=== PATIENT | male | born 1935 | race Caucasian/White ===

== ENCOUNTER 2021-07-22 08:40 | Inpatient (IN) | payer MEDICARE, MEDICAID ==
[~2021-07-22] VITALS: Ht 185.4 cm; Wt 63.5 kg
[2021-07-22 09:12] LABS: HEMOGLOBIN 9.2 gm/dl (12.3-15.3); RED BLOOD COUNT 3.08 M/UL (4.00-5.10); WHITE BLOOD COUNT 23.9 K/UL (4.5-11.0)
[2021-07-22 09:26] LABS: BUN/CREATININE RATIO 40 (0-10)
[2021-07-22] MEDS ORDERED: FOLIC ACID 1 MG1 MG GT (22:42)
[2021-07-22] MEDS ORDERED: ELIQUIS 2.5 MG2.5 MG GT (22:43)
[2021-07-22] MEDS ORDERED: ACIDOPHILUS-PE1 EACH GT (22:44)
[2021-07-22] MEDS ORDERED: FERROUS SULFAT325 M2 GT (22:44)
[2021-07-22] MEDS ORDERED: MELATONIN1 MG GT (22:45)
[2021-07-22] MEDS ORDERED: MULTI-VITAMIN1 EACH GT (22:46)
[2021-07-22] MEDS ORDERED: TYLENOL325 M1 GT (22:47)
[2021-07-22] MEDS ORDERED: GERI-LANTA LIQ355 M1 GT (22:48)
[2021-07-22] MEDS ORDERED: MILK OF MAGNESI30 ML GT (22:49)
[2021-07-22] MEDS ORDERED: ONDANSETRON4 MG/2 ML IM (22:50)
[2021-07-22] MEDS ORDERED: OSMOLITE 1.51000 ML GT (22:53)
--- NOTE | 2021-07-23 00:32 | NUR ---
UPON ASSESSMENT PT ALSO HAD THESE ADDITIONAL SKIN ISSUES: RIGHT INNER FOOT PRESSURE ULCER STAGE THREE 50% RED 50% YELLOW 2 CM BY 3 CM. RIGHT OUTER FIFTH TOE PRESSURE ULCER STAGE THREE 50% RED 50% YELLOW 1 CM BY 1 CM. RIGHT INNER FIFTH TOE PRESSURE ULCER STAGE THREE 50% RED 50% YELLOW 1 CM BY 1 CM. ALSO, SCRATCH TO LEFT CALF/HOOKER PATTERNMAKER BENCH. PT ALSO HAS SKIN TEARS TO LEFT OUTER FA WITH ALLEVYN PLACED, LEFT ELBOW SKIN TEAR WITH ALLEVYN PLACED, LEFT LOWER FA SKIN TEAR WITH ALLEVYN PLACED.
[2021-07-23 07:41] LABS: HEMOGLOBIN 8.4 gm/dl (14.0-17.5); RED BLOOD COUNT 2.86 M/UL (4.20-5.50)
[2021-07-23 07:52] LABS: WHITE BLOOD COUNT 10.3 K/UL (4.5-11.0)
[2021-07-23 09:09] LABS: BUN/CREATININE RATIO 34 (0-10)
--- NOTE | 2021-07-24 01:30 | NUR ---
EFFORTS HAVE BEEN MADE FOR THE ENTIRE SHIFT TO LOCATE A PUMP TO ADMINISTER TUBE FEEDING TO PT ORDERED, BUT NO SPARE PUMPS WERE DISCOVERED TO THIS POINT. TUBE FEEDING BEING ADMINISTERED AT SAME RATE PER HOUR BUT INSTEAD Q4H BOLUS FEED. JEVITY 1.5 DAVID GIVEN ORDERED. 100 ML OF FEED ADMINISTERED Q4H.
[2021-07-24 03:52] LABS: HEMOGLOBIN 8.7 gm/dl (14.0-17.5); RED BLOOD COUNT 2.94 M/UL (4.20-5.50)
[2021-07-24 03:54] LABS: WHITE BLOOD COUNT 6.3 K/UL (4.5-11.0)
[2021-07-24 04:29] LABS: BUN/CREATININE RATIO 34 (0-10)
[2021-07-25 03:54] LABS: HEMOGLOBIN 8.8 gm/dl (14.0-17.5); RED BLOOD COUNT 2.97 M/UL (4.20-5.50); WHITE BLOOD COUNT 6.3 K/UL (4.5-11.0)
[2021-07-25 04:15] LABS: BUN/CREATININE RATIO 25 (0-10)
[2021-07-26 04:37] LABS: HEMOGLOBIN 9.2 gm/dl (14.0-17.5); RED BLOOD COUNT 3.17 M/UL (4.20-5.50); WHITE BLOOD COUNT 7.5 K/UL (4.5-11.0)
[2021-07-26 04:55] LABS: BUN/CREATININE RATIO 20 (0-10)
[2021-07-26] MEDS ORDERED: VIBRAMYCIN 100100 MG PO (12:02)
[2021-07-26] MEDS ORDERED: CEPHALEXIN500 M1 PO (12:02)
[2021-07-26] MEDS ORDERED: SANTYL OINT 3030 GM TOP (12:02)
--- NOTE | 2021-07-26 16:19 | NUR ---
patient combative when awaken from his sleep, unable to change dressing and admitting nurse aware of the situation.
== END 2021-07-26 16:15 | DRG 871 ==
LOC: ER1 08:40 → M/S 17:39 → CDU 17:39 → M/S 21:20
PROVIDERS: Physician Assistant; Student in an Organized Health Care Education/Training Program; ADMIT Internal Medicine
DX: A41.9 Sepsis, unspecified organism (principal); L89.214 Pressure ulcer of right hip, stage 4; L89.893 Pressure ulcer of other site, stage 3; N30.00 Acute cystitis without hematuria; E44.0 Moderate protein-calorie malnutrition; Z68.1 Body mass index [BMI] 19.9 or less, adult; L89.156 Pressure-induced deep tissue damage of sacral region; I71.4 Abdominal aortic aneurysm, without rupture; R91.8 Other nonspecific abnormal finding of lung field; F03.90 Unspecified dementia, unspecified severity, without behavioral disturbance, psychotic disturbance, mood disturbance, and anxiety; E87.6 Hypokalemia; D64.9 Anemia, unspecified; Z20.822 Contact with and (suspected) exposure to COVID-19; Z96.642 Presence of left artificial hip joint; Z79.899 Other long term (current) drug therapy; Z98.890 Other specified postprocedural states; Z23 Encounter for immunization
CPT/HCPCS: 36415; 51701; 71045; 71260; 80048; 80053; 80202; 81001; 83605; 83735; 84132; 85025; 87040; 87086; 96374; 99285; J0696; J1650; J3370; J3480; J7070; Q9965; U0002